=== PATIENT | male | born 1950 | race Caucasian/White ===

== ENCOUNTER 2018-04-02 11:56 | Emergency (ER) | payer MEDICARE, OTHER ==
[2018-04-02 12:35] VITALS: BMI 26.6
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
--- NOTE | 2018-04-02 15:22 | PDOC ---
Attending Attestation - HPI HPI: 04/02/18 15:27 The patient is a 68 year old male with a past medical history of HTN and HLD here today for evaluation of right back pain. The patient reports that his back pain started on 03/30/18 and notes it is a 10/10 in severity. He also notes one episode of chest pain that happened today and resolved in a few minutes. Patient also notes a fever last night and reports taking tylenol. Patient denies headache, lightheadedness. Denies fever, chills. Denies shortness of breath. Denies nausea, vomiting, diarrhea, abdominal pain. Denies lower extremity edema. Allergies: aspirin, codeine Social history: Patient reports quitting tobacco use 10 years ago PCP: Zay Cardenas - Medical Decision Making 04/02/18 15:28 Documentation prepared by LEONORA Navarro, acting as medical coding technician for Tre Escobar MD. The patient is a 68 year old male with a past medical history of HTN and HLD here today for evaluation of right back pain. <Mariano Medrano - Last Filed: 04/02/18 15:34> - Resident Resident Name: Tay Elder - ED Attending Attestation I have performed the following: I have examined & evaluated the patient, The case was reviewed & discussed with the resident, I agree w/resident's findings & plan, Exceptions are as noted - Physicial Exam PE: 04/02/18 16:48 Reviewed Residents PE - Medical Decision Making 04/02/18 16:48 68 years old hypertension hyperlipidemia very brief episode of chest pressure here for evaluation of CVA pain Patient well-appearing no apparent distress EKG demonstrates normal sinus rhythm no ST elevations or T-wave inversions mild CVA tenderness palpation on examination no abdominal pain We'll check labs CT observe and reassess Dr. Mercado to follow up labs ct and reasses <Tre Escobar - Last Filed: 04/02/18 16:48>
[2018-04-02 15:49] LABS: URINE APPEARANCE CLEAR; URINE BILIRUBIN NEGATIVE (<2.0 mg/dL); URINE COLOR LTYELLOW; URINE GLUCOSE (UA) NEGATIVE (NEGATIVE); URINE KETONE NEGATIVE (NEGATIVE); URINE LEUK ESTERASE NEGATIVE (NEGATIVE); URINE NITRITE NEGATIVE (NEGATIVE); URINE PROTEIN NEGATIVE (NEGATIVE); URINE UROBILINOGEN NEGATIVE mg/dL (0.2-1.0)
[2018-04-02 15:52] LABS: BASO % 0.7 % (0-2.0); EOS % 1.8 % (0-4.5); HEMATOCRIT 39.3 % (35.4-49); HEMOGLOBIN 14.1 GM/dL (11.7-16.9); LYMPH % 26.2 % (8-40); MCH 32.4 pg (25.7-33.7); MCHC 35.7 g/dl (32.0-35.9); MEAN CELL VOLUME 90.6 fl (80-96); MEAN PLT VOLUME 7.9 fl (7.5-11.1); MONO % 7.9 % (3.8-10.2); NEUT % 63.4 % (42.8-82.8); PLATELET COUNT 223 K/MM3 (134-434); RBC 4.34 M/mm3 (4.00-5.60); RDW 12.9 % (11.9-15.9)
[2018-04-02 16:53] LABS: ALBUMIN 4.2 g/dl (3.4-5.0); ALK PHOS 65 U/L (45-117); ANION GAP 5 MMOL/L (8-16); BILIRUBIN,TOTAL 0.5 mg/dL (0.2-1); BLOOD UREA NITROGEN 19 mg/dL (7-18); CALCIUM 8.7 mg/dL (8.5-10.1); CHLORIDE 104 mmol/L (98-107); CO2 27 mmol/L (21-32); CREATININE 1.5 mg/dL (0.55-1.3); GLUCOSE,RANDOM 126 mg/dL (74-106); SGOT/AST 16 U/L (15-37); SGPT/ALT 22 U/L (13-61); SODIUM 135 mmol/L (136-145); TOT PROT 7.8 g/dl (6.4-8.2)
[2018-04-02] MEDS ORDERED: ACETAMINOPHEN 1000 MG/100 ML VIAL (NON FORMULARY) IVPB ONE (17:16)
[2018-04-02] MEDS ORDERED: SODIUM CHLORIDE 1,000 ML IV STA ×2 (17:16→19:43)
[2018-04-02] MEDS ORDERED: ACETAMINOPHEN INJECTION 100 ML IVPB ONE (17:44)
--- NOTE | 2018-04-02 20:21 | EKG ---
Test Reason : Blood Pressure : / mmHG Vent. Rate : 058 BPM Atrial Rate : 058 BPM P-R Int : 146 ms QRS Dur : 088 ms QT Int : 388 ms P-R-T Axes : 061 -07 008 degrees QTc Int : 380 ms SINUS BRADYCARDIA OTHERWISE NORMAL ECG WHEN COMPARED WITH ECG OF 06-DEC-2011 10:05, NO SIGNIFICANT CHANGE WAS FOUND Confirmed by ALMA JOHNSON MD ([id number]) on 04/02/2018 8:21:29 PM Referred By: Confirmed By:ALMA JOHNSON MD
[2018-04-02 22:35] VITALS: BP 136/78; PULSE 77; TEMP 98.5
== END 2018-04-02 22:35 | disposition home or self-care (01) ==
LOC: JER 11:56
PROC: 3E0337Z Introduction of Electrolytic and Water Balance Substance into Peripheral Vein, Percutaneous Approach (ICD-10-PCS; principal; 2018-04-02)
PROC: 3E033NZ Introduction of Analgesics, Hypnotics, Sedatives into Peripheral Vein, Percutaneous Approach (ICD-10-PCS; 2018-04-02)
DX: R10.9 Unspecified abdominal pain (principal); I10 Essential (primary) hypertension; E78.00 Pure hypercholesterolemia, unspecified; N40.0 Benign prostatic hyperplasia without lower urinary tract symptoms; Z87.438 Personal history of other diseases of male genital organs
CPT/HCPCS: 36415; 71275-TC; 74160-TC; 74176-TC; 80053; 81003; 82550; 84484; 85025; 93005; 93010; 96361; 96374; 99283-25; J0131; J7030